=== PATIENT | male | born 1965 | race Caucasian/White ===

== ENCOUNTER → 2019-02-04 | Outpatient (CLI) | payer OTHER ==
[~2019-02-04] VITALS: Ht 188 cm; Wt 90.7 kg
[~2019-02-04] MED LIST: ALLERGY RELIEF4 MG PO; SUDAFED PO; VITAMIN B-1100 M1 PO
--- NOTE | ~2019-02-04 | P ---
[facility] [place] [address] PROCEDURE REPORT Name: KITTYSTEPHAN Dulce [facility] [id number] Admission: 02/04/19 ������������������ Attend Phys: Thad Park Discharge: ������������������ Date of : 67 Report #: [id number] THIS REPORT FOR: //name// CC: Thad Cardoso Nilescristina Cardoso MD DATE OF SERVICE: 02/04/2019 PROCEDURE PERFORMED: Colonoscopy with polypectomy. HISTORY OF PRESENT ILLNESS: The patient is a 53-year-old male who presents today for a routine screening colonoscopy. He denies any symptoms. No previous history of endoscopy, no family history of colon cancer. DESCRIPTION OF PROCEDURE: The risks and benefits of the procedure were explained to the patient, those risks including but not limited to bleeding, perforation, the risk of sedation. He understood these risks and gave informed consent. Sedation was given using propofol per anesthesia. Next, a digital rectal exam was initially performed, which was normal. Next, using a standard Olympus colonoscope, the scope was placed in the patient's anus and advanced under direct vision to the cecum. The overall prep was excellent. The cecum and ileocecal valve were normal in appearance. In the mid ascending colon, a 1 cm sessile polyp was noted. This was removed by snare cautery. No other abnormalities were noted. Transverse and descending colon were normal. Multiple small diverticula were noted in the sigmoid colon, no evidence of inflammation, otherwise normal. The rectal mucosa was normal. On retroflexion, small nonbleeding internal hemorrhoids were noted. The scope was then withdrawn and the procedure terminated. The patient tolerated the procedure well. IMPRESSION: 1. Colon polyp. 2. Sigmoid diverticulosis. 3. Internal hemorrhoids. 4. Otherwise, normal colonoscopy. RECOMMENDATIONS: 1. Await biopsy results. 2. Repeat colonoscopy in 5 years. Thank you for allowing me to participate in his care. ��������������������������������������������� ���������������������������������������� By: ��������������������������������������������� [id number] Thad Santo MD /nt
--- NOTE | 2019-02-05 15:05 | PATH ---
[facility] [address] [place] [address] PATHOLOGY RPT PROCEDURE Name: BOB TANG Dulce Room #: REG [facility] [id number] ������������������ Admission: 02/04/19 ������������������ Date of : 67 Discharge: Report #: [id number] Path Case #: [id number] [facility] Accession Number: [id number] . 01 Material submitted: . colon - POLYP AT ASCENDING COLON. Modifiers: ascending . 01 Clinical history: . Pre-OP DX: Screening Post-OP DX: Colon polyp, diverticulosis, hemorrhoid . 02 Diagnosis: Polyp, at ascending colon, endoscopic biopsy: - Serrated polyp. - Negative for dysplasia. . (IUV:mml; 02/05/2019) QLM/02/05/2019 . 02 Electronically signed: . Aditi Celaya MD, Pathologist NPI- [id number] . 01 Gross description: . Received in formalin labeled "Bob Tang, polyp at ascending colon," is a 0.8 x 0.6 x 0.5 cm polypoid piece of knight soft tissue. The margin is inked and the tissue is sectioned perpendicular to the margin and submitted in its entirely in cassette A1. Additionally received is a 0.8 x 0.4 x 0.4 cm polypoid piece of knight soft tissue. The margin is inked and the tissue is sectioned perpendicular to the margin and submitted in its entirely in cassette A2. (TSD; 02/04/2019) TOB/TOB . 02 Pathologist provided ICD-10: K63.5 . 02 CPT . 855894 Specimen Comment: A courtesy copy of this report has been sent to Specimen Comment: [phone], . Specimen Comment: Report sent to / DR MAURICIO Performed at: [address] [id number] MD Agustin Joseph MD Phone: [phone] Performed at: [address] [address] PATHOLOGY RPT PROCEDURE Name: BOB TANG Dulce Room #: REG [facility]#: [id number] ������������������ Admission: 02/04/19 ������������������ Date of : 67 Discharge: Report #: [id number] Path Case #: [id number] [address] [id number] MD Aditi Celaya MD Phone: [phone]
== END | disposition home or self-care (01) ==
LOC: GI 07:01
DX: Z12.11 Encounter for screening for malignant neoplasm of colon (principal); K63.5 Polyp of colon; K57.30 Diverticulosis of large intestine without perforation or abscess without bleeding; K64.8 Other hemorrhoids; E78.5 Hyperlipidemia, unspecified; R31.29 Other microscopic hematuria; Z98.890 Other specified postprocedural states; Z79.899 Other long term (current) drug therapy; Z88.8 Allergy status to other drugs, medicaments and biological substances
CPT/HCPCS: 62110; 62900